=== PATIENT | female | born 1985 | race Caucasian/White ===

== ENCOUNTER 2016-09-18 13:21 | Inpatient (IN) | payer OTHER ==
[~2016-09-18] VITALS: Ht 172.7 cm; Wt 86.0 kg
[2016-09-18] VITALS (13 sets, daily range): BP systolic 109–172; BP diastolic 55–92
[2016-09-18] MEDS ORDERED: PRENTAB9 PO (13:32)
[2016-09-18] MEDS ORDERED: LR 1,000 ML IV SCH (14:47)
[2016-09-18] MEDS ORDERED: LACTATED RINGER'S 1000 ML IV STA (14:47)
[2016-09-18 15:18] LABS: MEAN CORPUSCULAR HEMOGLOBIN 31.8 pg (27.0-33.0); MEAN CORPUSCULAR HGB CONC 34.6 g/dl (32.0-36.5); MEAN CORPUSCULAR VOLUME 91.8 fl (80.0-96.0); RED CELL DISTRIBUTION WIDTH 12.4 % (11.5-14.5)
[2016-09-18] MEDS ORDERED: OXYTOCIN 30 UNITS IN 0.9% NaCl 500ML IV BAG (J2590) As Ordered ONE (15:26)
--- NOTE | 2016-09-18 16:44 | HPEPDOC ---
Obstetrical History & Physical General Date of Admission Sep 18, 2016 at 14:14 History of Present Illness 30 yo G1 presents to L&D ambulatory @ 39+1 by LMP ([id number]), with EARL- [id number]. Reports CTXs. Denies DFM, LOF and VB. 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 Past Medical History Medical History Collapsed lung 2013 abnormal PAP with colpo 2011 Surgical History: Denies/None, Breast augmentation (2010) Family History Significant Family History: No pertinent family hx Social History Marital Status: Single Family situation: Spouse/partner home Psychosocial History: No pertinent psych hx * Smoker: non-smoker Alcohol: Denies Drugs: denies Abuse Violence Screening Have you been hit/kicked/slapp: No Have you been sexually assault: No Imunizations Tdap status: current ([id number]) Influenza Status: current () Allergies Coded Allergies: No Known Allergies (Unverified , 09/18/16) Medications Scheduled Multivitamins/ ( 27-0.8 mg) 1 Tab Tab, 1 TAB PO DAILY Physical Examination Physical Examination GENERAL: A&O x 3 BREAST: ABDOMEN: Gravid and non-tender to touch. FETUS: VTX by SVE HEART RATE: RRR, no m/r/g LUNGS: CTA EXTREMITIES: No edema. No clonus. EFW- 3200 grams SVE- 5-6 cm per RN Laboratory Data 24H LABS Laboratory Tests 2 09/18/16 14:26: Serology Scanned Report Hepatitis B Testing 09/18/16 14:56: CBC/BMP Laboratory Tests 09/18/16 14:56 Red Blood Count 4.23, Mean Corpuscular Volume 91.8, Mean Corpuscular Hemoglobin 31.8, Mean Corpuscular Hemoglobin Concent 34.6, Red Cell Distribution Width 12.4 Pertinent Laboratoy Data Blood Type: A+ RBC Antibody Screen: Negative HIV: Negative Hepatitis B: Negative Hepatitis C: Unknown Rapid Plasma Reagin: Nonreactive Rubella: Immune Varicella: Immune Chlamydia/Gonorrhea: Negative Group B Streptococcus: Negative Quad Screen Test: Negative Glucose Tolerance Test: 105 Anatomy Ultrasound Ultrasound Date: May 10, 2016 Placenta Location: Anterior Normal Anatomy: Yes Placenta Previa: No Estimated Weight (grams): 408 Steroid Therapy Steroid Therapy: No Vaginal Examination Dilation: 6 cm Effacement: 80+% Station: -1, 0 Cervical Consistency: Soft Cervical Position: Anterior Presentation: Cephalic presentation Position: Vertex (occiput) Assessment Heart Rate (FHR): 130 Variability: Moderate Accelerations: Positive Decelerations: None Tocometer Contractions: Yes Frequency: regular, every 1-3 min. Duration: less than 90 seconds Strength: palpated as strong Multi-drug resistant Organism: No history of MDRO Assessment/Plan Assessment 30 yo G1 presents to L&D ambulatory @ 39+1 by LMP ([id number]), with EARL- [id number]. Reports CTXs. Denies DFM, LOF and VB. GBS negative. CAT I FHR tracing, active labor Plan Admit and orient. 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 Diet: regular GBS negative IV and labs per unit protocol LR 1000 ml bolus, then @ 125 ml/hr Anticipate AIDA OSEI CNM Sep 18, 2016 16:44
[2016-09-18] MEDS ORDERED: LIDOCAINE 1% MDV INJ 50 ML VIAL As Ordered ONE (17:09)
[2016-09-18] MEDS ORDERED: OXYTOCIN DRIP 30 UNITS in APPROPRIATE DILUENT 1 EA IV SCH (18:39)
[2016-09-18] MEDS ORDERED: ONDANSETRON 4MG/2ML VIAL (J2405) IV PRN (18:45)
[2016-09-18] MEDS ORDERED: MOM 30ML SUSPENSION UDC PO PRN (18:45)
[2016-09-18] MEDS ORDERED: LIDOCAINE 1% MDV INJ 50 ML VIAL INFIL ONE (18:45)
[2016-09-18] MEDS ORDERED: PROMETHAZINE 25 MG TAB PO PRN (18:45)
[2016-09-18] MEDS ORDERED: DIBUCAINE 1% OINTMENT 30GM TOP PRN (18:45)
[2016-09-18] MEDS ORDERED: IBUPROFEN 800 MG TAB PO PRN (18:45)
--- NOTE | 2016-09-18 18:53 | DNPDOC ---
[facility] Delivery Note Delivery Note DATE OF DELIVERY: Sep 18, 2016 at 14:14 PREDELIVERY DIAGNOSIS: 39+1/7 weeks' gestation and labor. POST DELIVERY DIAGNOSIS: Delivered. PROCEDURE: CORONER TRANSPORT TECHNICIAN: Aida Osei CNM ANESTHESIA: none ESTIMATED BLOOD LOSS: 350 mL. FINDINGS: 7 pound 14 ounce female , Score 8/9 DELIVERY SUMMARY: 30 yo G1 n P1001 presented to L&D in active labor. Pt progressed to c/c/+1 with strong desire to push. Pushed approx 20 min. female . Presented OA, anterior shoulder (left) delivered with mild downward traction, posterior shoulder and corpus delivered without difficulty. Delayed cord clamping x 3 min, then clamped x 2 and cut by FOB. placenta delivered, intact with 3 vessel cord. 3MLL noted. Dr. Stevenson called to bedside for repair. Dr. Stevenson assumed care to complete repair. AIDA OSEI CNM Sep 18, 2016 18:53
[2016-09-18] MEDS: DOCUSATE SODIUM 100 MG CAP PO SCH (22:10)
[2016-09-19 06:32] VITALS: BP 113/57
[2016-09-19 07:48] LABS: MEAN CORPUSCULAR HGB CONC 34.6 g/dl (32.0-36.5); MEAN CORPUSCULAR VOLUME 92.6 fl (80.0-96.0); RED CELL DISTRIBUTION WIDTH 12.5 % (11.5-14.5); WHITE BLOOD COUNT 13.2 K/mm3 (4.0-10.0)
[2016-09-19] MEDS: PRENATAL VITAMINS CHEWABLE TABLET PO SCH (08:48)
[2016-09-19] MEDS: DOCUSATE SODIUM 100 MG CAP PO SCH ×3 (08:48→21:00)
--- NOTE | 2016-09-19 09:09 | RO ---
DATE OF PROCEDURE: 09/18/2016 This lady had a rapid delivery, 1, para 1 of a live female infant. She sustained bilateral vaginal lacerations and a third degree. She initially had the bilateral lacerations repaired by sign installer Andrew under local; however, sign installer Andrew asked me to step in and have a look and she in fact had a third degree tear. The mucosa was intact, and she also developed over the time a left vulvar hematoma. She was deciding whether or not to have an epidural or not and it took well over 2 hours for her to make a decision as to whether she wanted the epidural or not. After adequate consultation with Dr. Chopra, she agreed to the epidural. Once that was in place, we are able to commence our procedure. PREPROCEDURE DIAGNOSES: Bilateral vulvar lacerations, third degree tear, left vulvar hematoma. POSTPROCEDURE DIAGNOSES: Bilateral vulvar lacerations, third degree tear, left vulvar hematoma. OPERATION PROPOSED: Repair of bilateral vulvar tears and third degree tear. SURGEON: Filippo Stevenson MD FINISHER DENTURE: ANESTHESIA: Epidural and local. ESTIMATED BLOOD LOSS: About 50 mL DESCRIPTION OF PROCEDURE: Under adequate anesthesia, prepped and draped in lithotomy position, we evaluated the two lateral wall tears. They required resuturing as the hematomas expanded the suture out so with a J [id number] we repaired the two bilateral vulvar lacerations to the perineum, after which we then brought the muscle of the perineal body together and then with a [id number] of a J [id number], we resewed the capsule around the muscle. Digital examination revealed the sphincter was now intact and there was no rent in the mucosa of the rectum. We then went ahead and repaired the midline spontaneous episiotomy with again another J [id number]. We left slightly gaping because she had extensive edema there. There was no excessive bleeding. With the instrument and pad count correct, the patient was left to recover with an ice diaper and analgesics.
--- NOTE | 2016-09-19 10:26 | IPN ---
DATE: 09/18/2016 This is a 30-year-old, 1 now para 1, had a precipitous delivery of a live female infant weighing 7 pounds 14 ounces, 3578 grams. She had bilateral vaginal wall tears, plus she had a third degree tear. After multiple consultations, she eventually had an epidural in place and we repaired the sidewall tears, as well as the third degree tear, presently using an ice diaper. She did have a vulvar hematoma on the left. PHYSICAL EXAMINATION: On examination today, the vulvar hematoma is resolved. She has some brown/dark red discharge, which is usual for the extensiveness of the repair. She is passing gas and she is voiding well. Our plan of management today is to allow her to recuperate, use stool softeners and concentrate on perineal care when she goes home. The rest of the examination of the pelvic area is unremarkable. The swelling has gone down considerably and the black and blue areas in the vulvovaginal area have resolved. The rest of the examination, her blood pressure is 113/57, respirations 18, pulse 68, temperature is 98.2. Her admitting hemoglobin is 13.4, hematocrit 38.8 and platelets are 162. day #1 hemoglobin is pending. Plans are for discharge tomorrow morning with medications. We discussed control, and she will use the oral contraceptive, as she had done previously; however, it is the going to be Nor-Q, which is a progesterone only pill. Patient is progressing well and is anxious for discharge tomorrow.
[2016-09-19 17:20] VITALS: BP 122/59
[2016-09-20 06:41] VITALS: BP 115/70
[2016-09-20] MEDS: DOCUSATE SODIUM 100 MG CAP PO SCH (08:10)
[2016-09-20] MEDS: PRENATAL VITAMINS CHEWABLE TABLET PO SCH (08:10)
[2016-09-20] MEDS ORDERED: COLA100C5 PO (10:20)
[2016-09-20] MEDS ORDERED: MOTR200T44 PO (10:20)
== END 2016-09-20 11:50 | disposition home or self-care (01) | DRG 775 ==
LOC: M LDO 13:21 → M LDI 14:14 → M OBS 19:43
PROVIDERS: ADMIT Midwife; ATTEND Midwife
PROC: 0DQR0ZZ Repair Anal Sphincter, Open Approach (ICD-10-PCS; principal; 2016-09-18)
PROC: 10E0XZZ Delivery of Products of Conception, External Approach (ICD-10-PCS; 2016-09-18)
PROC: 0HQ9XZZ Repair Perineum Skin, External Approach (ICD-10-PCS; 2016-09-18)
DX: O70.20 Third degree perineal laceration during delivery, unspecified (principal); O71.7 Obstetric hematoma of pelvis; Z3A.39 39 weeks gestation of pregnancy; Z37.0 Single live birth; O70.0 First degree perineal laceration during delivery

== ENCOUNTER 2019-03-18 02:10 | Inpatient (IN) | payer OTHER, SELFPAY ==
[~2019-03-18] VITALS: Ht 172.7 cm; Wt 90.0 kg
[~2019-03-18 02:10] MED LIST: COLA100C5 PO; MOTR200T44 PO; PRENTAB9 PO
[2019-03-18] MEDS ORDERED: OXYTOCIN 30 UNITS IN 0.9% NaCl 500ML IV BAG (J2590) As Ordered ONE (03:21)
[2019-03-18 03:32] LABS: HEMATOCRIT 39.4 % (36.0-47.0); HEMOGLOBIN 12.8 g/dl (12.0-15.5); MEAN CORPUSCULAR HEMOGLOBIN 30.1 pg (27.0-33.0); MEAN CORPUSCULAR HGB CONC 32.5 g/dl (32.0-36.5); MEAN CORPUSCULAR VOLUME 92.7 fl (80.0-96.0); PLATELET COUNT, AUTOMATED 153 10^3/uL (150-450); RED BLOOD COUNT 4.25 10^6/uL (4.00-5.40); WHITE BLOOD COUNT 11.7 10^3/uL (4.0-10.0)
[2019-03-18] MEDS ORDERED: LACTATED RINGER'S 1000 ML IV STA (04:10)
[2019-03-18] MEDS ORDERED: SIMETHICONE 80 MG CHEW TAB PO PRN (04:15)
[2019-03-18] MEDS ORDERED: OXYTOCIN DRIP 30 UNITS in IV 1 EA IV SCH (04:15)
[2019-03-18] MEDS ORDERED: MOM 30ML SUSPENSION UDC PO PRN (04:15)
[2019-03-18] MEDS ORDERED: ACETAMINOPHEN 500 MG TAB PO PRN (04:15)
[2019-03-18] MEDS ORDERED: PROMETHAZINE 25 MG TAB PO PRN (04:15)
[2019-03-18] MEDS ORDERED: DIBUCAINE 1% OINTMENT 30GM TOP PRN (04:15)
[2019-03-18] MEDS ORDERED: ANUSOL HC CREAM 30GM TOP PRN (04:15)
[2019-03-18] MEDS ORDERED: IBUPROFEN 600 MG TAB PO PRN (04:15)
[2019-03-18] MEDS ORDERED: LIDOCAINE 1% MDV 20ML VIAL INFIL ONE (04:15)
--- NOTE | 2019-03-18 04:42 | HPEPDOC ---
Obstetrical History & Physical General Date of Admission Mar 18, 2019 at 03:04 History of Present Illness Patient is a 33yo at 40.0wks by LMP c/w 13wk US c/o contractions. Contractions [id number] since midnight with some leakage of clear fluid. No bleeding. Goo movement. No other complaints. 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 Past Medical History Medical History Collapsed Lung Surgical History: Breast augmentation, Other (broken finger repair) Family History Significant Family History: No pertinent family hx Social History Marital Status: Family situation: Spouse/partner home Psychosocial History: No pertinent psych hx * Smoker: non-smoker Alcohol: Denies Drugs: denies Abuse Violence Screening Have you been hit/kicked/slapp: No Have you been sexually assault: No Imunizations Tdap status: current Influenza Status: current Allergies Coded Allergies: No Known Allergies (Unverified , 09/18/16) Medications Scheduled Docusate Sodium (Colace) 100 Mg Cap, 100 MG PO TID No.137/Iron/Folic Acd ( Vitamin Tablet) 1 Tab Tab, 1 TAB PO DAILY Scheduled PRN Ibuprofen (Motrin Ib) 200 Mg Tab, 800 MG PO Q8HP PRN for MODERATE PAIN (PS 5-7) Physical Examination Physical Examination GENERAL: Alert and oriented times three. Clearly uncomfortable. ABDOMEN: Gravid and non-tender to touch. FETUS: Is vertex (VTX) by sterile vaginal examination (SVE). EXTREMITIES: No edema. No clonus. SVE Complete/+2 Vital Signs/I&O I&O- Last 24 Hours up to 6 AM0 03/18/19 06:00 Output Total 250 ml Balance -250 ml Laboratory Data 24H LABS Laboratory Tests 2 03/18/19 03:11: Serology Scanned Report Hepatitis B Testing 03/18/19 03:15: Nucleated Red Blood Cells % (auto) 0.0 CBC/BMP Laboratory Tests 03/18/19 03:15 Pertinent Laboratoy Data Blood Type: A+ RBC Antibody Screen: Negative HIV: Negative Hepatitis B: Negative Hepatitis C: Unknown Rapid Plasma Reagin: Nonreactive Rubella: Immune Varicella: Immune Chlamydia/Gonorrhea: Negative Group B Streptococcus: Negative Quad Screen Test: Negative Glucose Tolerance Test: 82 Anatomy Ultrasound Ultrasound Date: Dec 03, 2018 Placenta Location: Anterior Normal Anatomy: Yes Placenta Previa: No Estimated Weight (grams): 820 Vaginal Examination Dilation: complete Effacement: 100% Station: +2 Presentation: Cephalic presentation Assessment Heart Rate (FHR): 140 Variability: Moderate Accelerations: Positive Decelerations: None Tocometer Contractions: Yes Frequency: regular, every 1-3 min. Strength: palpated as strong Multi-drug resistant Organism: No history of MDRO Assessment/Plan Assessment Patient is a 33yo at 40.0wks by LMP c/w 13wk US in active labor. Admit for labor and expect delivery by soon. I discussed risks of with patient of failure with section, distress, bleeding, infection, , vaginal or perineal or neighboring organ tear. Currently fetus is reassuring. GBS negative, no need for antibiotics. Plan Admit and orient. 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 Diet: . Group B Streptococcus (GBS) [negative]. Labs and intravenous (IV) per unit protocol. Counseled on Pitocin and induction of labor (IOL). Lactated Ringers (LR): Bolus mL, then at mL/hr. Anticipate [normal spontaneous delivery ()]. C-S as appropriate. Viji Carroll MD Mar 18, 2019 04:42
--- NOTE | 2019-03-18 04:56 | DNPDOC ---
[facility] Delivery Note Delivery Note DATE OF DELIVERY: 03/18/2019 PREDELIVERY DIAGNOSIS: Labor and SROM at 40 1/7 weeks' gestation and labor. POST DELIVERY DIAGNOSIS: Delivered. PROCEDURE: Spontaneous vaginal delivery. CCNA: Dr. Carroll ANESTHESIA: None. ESTIMATED BLOOD LOSS: 250 mL. FINDINGS: 8 pound 15 ounce Male , Score 9/9, nuchal cord times 0. DELIVERY SUMMARY: Patient is a 33-year-old 2 now para 2001 who was admitted to labor and delivery for active labor for 4hours. Patient SROM clear around 00:30. Baby boy head was delivered without difficulty over intact perineum in JOSEPH position at 03:30. The nose and mouth were bulb suctioned. No nuchal cord was noted. The shoulders were then delivered without difficulty. Cord was then clamped x2 and cut. Infant was handed on mother's belly. Pitocin bolus was started. Perineum was inspected and found to have a 2nd degree laceration. This was repaired with 1% lidocaine 6cc with 2-0 chromic. The placenta was then delivered at 03:38 spontaneously intact. Cord had a 3 vessel cord. EBL was 250mL. The vagina and perineum were reinspected and no further lacerations were found and hemostasis was good. Fundus was firm. Patient tolerated delivery well. Viji Carroll MD Mar 18, 2019 04:56
[2019-03-18 06:13] VITALS: BP 109/55
[2019-03-18] MEDS: IBUPROFEN 800 MG TAB PO PRN ×2 (06:33→20:15)
[2019-03-18] MEDS: PRENATAL VITAMINS CHEWABLE TABLET PO SCH (09:04)
[2019-03-18] MEDS: DOCUSATE SODIUM 100 MG CAP PO SCH ×2 (09:04→20:14)
[2019-03-18 18:00] VITALS: BP 111/67
[2019-03-19 06:00] VITALS: BP 114/62
--- NOTE | 2019-03-19 08:32 | IPNPDOC ---
Text Note Date of Service The patient was seen on 03/19/19. NOTE patient is a 33 yo s/p PPD #1. Patient without concerns today. She is breast feeding. She is tolerating normal acitvities without problem. vitals: normal nad abd: nd, soft, nt, fundus at U, firm le: no edema/erythema/tenderness a/p patient is a ppd #1, doing well. discharge instructions given. d/c home today. le VS,Lanee, I+O VS, Fishbone, I+O Vital Signs Date Time Temp Pulse Resp B/P (MAP) Pulse Ox O2 Delivery O2 Flow Rate FiO2 03/19/19 06:00 98.3 68 18 114/62 (79) I&O- Last 24 Hours up to 6 AM 03/19/19 05:59 Output Total 450 ml Balance -450 ml ROSLYN RICHARDSON DO Mar 19, 2019 08:32
--- NOTE | 2019-03-19 08:39 | OBDS ---
[facility] Obstetrical Discharge Sum. Obstetrical Discharge Summary Internal Communications Intern/Provider: Viji Carroll MD Date: Mar 19, 2019 : 2 Term: 2 Pre-term: 0 Abortions: 0 Livin VDRL: Non-Reactive Rh: Positive Rubella: Immune Sex: Male Weight: pounds (8), ounces (15) A/P, Post Course List any complications Admission diagnosis: Labor at term Discharge diagnosis: () second degree laceration (repaired) Condition at Discharge: stable Discharge Instructions: Home Activity: as tolerated Diet: regular Medications: picked up at [facility] Follow-up: 6-8wks Hospital course: Patient presented to labor and delivery in active labor and progressed to have a spontaneous vaginal delivery. course uncomplicated. Patient discharge on day #1. ROSLYN RICHARDSON DO Mar 19, 2019 08:39
[2019-03-19] MEDS: DOCUSATE SODIUM 100 MG CAP PO SCH (09:10)
[2019-03-19] MEDS: PRENATAL VITAMINS CHEWABLE TABLET PO SCH (09:10)
== END 2019-03-19 11:40 | disposition home or self-care (01) | DRG 807 ==
LOC: M LDO 02:10 → M LDI 03:04 → M OBS 05:52
PROVIDERS: ADMIT Obstetrics & Gynecology; ATTEND Obstetrics & Gynecology
PROC: 10E0XZZ Delivery of Products of Conception, External Approach (ICD-10-PCS; principal; 2019-03-18)
PROC: 0KQM0ZZ Repair Perineum Muscle, Open Approach (ICD-10-PCS; 2019-03-18)
DX: O70.1 Second degree perineal laceration during delivery (principal); Z37.0 Single live birth; Z3A.40 40 weeks gestation of pregnancy